=== PATIENT | female | born 1945 | race Hispanic/Latino ===

== ENCOUNTER 2020-10-30 14:00 | Emergency (ER) | payer MEDICARE ==
[~2020-10-30] VITALS: Ht 172.7 cm; Wt 63.5 kg
== END 2020-10-30 16:30 | disposition home or self-care (01) ==
LOC: ER 16:22
DX: B02.9 Zoster without complications (principal)
CPT/HCPCS: 99283

== ENCOUNTER 2020-11-20 17:18 | Emergency (ER) | payer MEDICARE ==
[~2020-11-20] VITALS: Ht 172.7 cm; Wt 63.5 kg
[2020-11-20] MEDS ORDERED: HYDROCODONE/APAP 10MG-325MG TAB PO ONE (17:45)
[2020-11-20] MEDS ORDERED: GABAPENTIN 300 MG CAP PO ONE (17:45)
[2020-11-20] MEDS ORDERED: LIDOCAINE 4% PATCH TP ONE (19:00)
== END 2020-11-20 19:05 | disposition home or self-care (01) ==
LOC: ER 17:38
DX: B02.29 Other postherpetic nervous system involvement (principal); Z94.0 Kidney transplant status; Z94.4 Liver transplant status
CPT/HCPCS: 99283

== ENCOUNTER 2022-08-06 18:44 | Emergency (ER) | payer MEDICARE ==
[~2022-08-06] VITALS: Ht 172.7 cm; Wt 63.5 kg
[2022-08-06] MEDS ORDERED: MORPHINE SULFATE 15MG TAB CR PO ONE (19:15)
[2022-08-06] MEDS ORDERED: ONDANSETRON HCL INJ 2MG/ML 2ML 2 MG/ML VIAL IV STA (20:19)
[2022-08-06] MEDS ORDERED: Morphine 4mg INJECTION 4 MG/ML INJ IV ONE (20:30)
[2022-08-06] MEDS ORDERED: ULTRAM 50MG50 MG PO (22:40)
[2022-08-06 22:51] VITALS: BP 150/71
== END 2022-08-06 22:50 | disposition home or self-care (01) ==
LOC: ER 18:58
DX: M25.511 Pain in right shoulder (principal); Z94.4 Liver transplant status; Z94.0 Kidney transplant status
CPT/HCPCS: 73030; 73200; 99284; J2270; J2405

== ENCOUNTER 2025-01-12 15:06 | Emergency (ER) | payer MEDICARE ==
[~2025-01-12] VITALS: Ht 172.7 cm; Wt 52.6 kg
[~2025-01-12 15:06] MED LIST: ULTRAM 50MG50 MG PO
[2025-01-12 16:52] VITALS: PULSE 66; RESP 16; TEMP 98.7; O2SAT 100
[2025-01-12] MEDS ORDERED: ONDANSETRON ODT4 MG PO (16:54)
== END 2025-01-12 17:06 | disposition home or self-care (01) ==
LOC: ER 16:44
DX: M54.2 Cervicalgia (principal); S16.1XXA Strain of muscle, fascia and tendon at neck level, initial encounter; R11.0 Nausea; Z94.0 Kidney transplant status; Z94.4 Liver transplant status
CPT/HCPCS: 93005; 99283